=== PATIENT | male | born 1980 | race Two or more races ===

== ENCOUNTER 2017-09-07 14:01 | Outpatient (CLI) | payer OTHER | END 2017-09-07 14:52 | disposition home or self-care (01) | LOC: RAD 501 14:01 | DX: M25.572 Pain in left ankle and joints of left foot (principal) ==

== ENCOUNTER 2017-09-09 12:49 | Outpatient (CLI) | payer OTHER | END 2017-09-09 12:56 | disposition home or self-care (01) | LOC: RAD 12:49 | DX: M79.671 Pain in right foot (principal); M79.672 Pain in left foot ==